=== PATIENT | male | born 1970 | race Caucasian/White ===

== ENCOUNTER 2018-05-09 07:52 | Day surgery (SDC) | payer OTHER ==
[~2018-05-09] VITALS: Ht 180.3 cm; Wt 121.8 kg
[2018-05-09] MEDS ORDERED: SODIUM CHLORIDE 0.9% 1,000 ML IV ONE ×2 (08:05→08:30)
[2018-05-09] MEDS ORDERED: LOSA50TA37 PO (08:10)
[2018-05-09] MEDS ORDERED: SERT100T12 PO (08:10)
[2018-05-09] MEDS ORDERED: PREG50 PO (08:10)
[2018-05-09] MEDS ORDERED: IOHEXOL 300 MG/ML 10 ML VIAL ONE (09:45)
[2018-05-09] MEDS ORDERED: LIDOCAINE HCL/PF 1% 30 ML VIAL ONE (09:45)
[2018-05-09 09:50] VITALS: BP 141/108
[2018-05-09] MEDS ORDERED: BUPIVACAINE HCL/PF 0.75% 10 ML VIAL ONE (10:15)
[2018-05-09 10:23] VITALS: BP 144/99
[2018-05-09] MEDS ORDERED: BUPIVACAINE HCL/PF 0.75% 10 ML VIAL IARTIC ONE (10:30)
[2018-05-09] MEDS ORDERED: IOHEXOL 300 MG/ML 10 ML VIAL IARTIC ONE (10:30)
== END 2018-05-09 11:35 | disposition home or self-care (01) ==
LOC: SDS 07:52
PROVIDERS: ATTEND Physical Medicine & Rehabilitation Pain Medicine
DX: M51.16 Intervertebral disc disorders with radiculopathy, lumbar region (principal); I10 Essential (primary) hypertension; M19.90 Unspecified osteoarthritis, unspecified site; F12.90 Cannabis use, unspecified, uncomplicated; F32.9 Major depressive disorder, single episode, unspecified; Z79.899 Other long term (current) drug therapy; Z98.890 Other specified postprocedural states; Z83.3 Family history of diabetes mellitus; Z80.3 Family history of malignant neoplasm of breast
CPT/HCPCS: 64483; 72275; 99152; J1040; J3490 ×2; J7030; Q9967